=== PATIENT | male | born 1990 | race Two or more races ===

== ENCOUNTER 2024-04-14 19:21 | Emergency (ER) | payer BC, OTHER ==
[~2024-04-14] VITALS: Ht 162.6 cm; Wt 97.7 kg
[2024-04-14] MEDS ORDERED: PRED20TA2 PO (21:38)
[2024-04-14] MEDS ORDERED: ACET500T58 PO (21:38)
[2024-04-14] MEDS ORDERED: AMOX875T4 PO (21:38)
--- NOTE | 2024-04-14 21:38 | ED.PDOC ---
Eye-HPI HPI Comments 33-year-old male presents to ER with complaints of sore throat x2 days. Patient reports that he has been experiencing sore throat, painful swallowing and congestion x2 days with associated dry cough x1 day. He rates his current pain a 7/10 to throat. Denies use of medications for current symptoms. Patient presents to ER ambulatory on arrival, with steady gait, in no distress. Denies fever, body aches, chills, shortness of breath, chest pain, hemoptysis, nausea/vomiting or any further symptoms/complaints Chief Complaint: Sore Throat Time Seen by MD: 19:49 Primary Care Provider: UNKNOWN Reviewed Notes: Nurses Notes, Medications, Allergies Allergies: Coded Allergies: NO KNOWN ALLERGIES (Unverified , 04/14/24) Home Meds Active Scripts Prednisone (Prednisone) 20 Mg Tab, 20 MG PO BID for 5 Days, #10 TAB 0 Refills Prov:JODY MCKENZIE 04/14/24 Amoxicillin & Pot Clavulanate (Amoxicillin/Potassium Cla) 875 Mg Tab, 1 TAB PO BID for 7 Days, #14 TAB 0 Refills Prov:JODY MCKENZIE 04/14/24 Acetaminophen (Acetaminophen) 500 Mg Tab, 500 MG PO Q4HPRN, #30 TAB 0 Refills Prov:JODY MCKENZIE 04/14/24 Information Source: Patient Mode of Arrival: Ambulatory Past Medical History PAST MEDICAL HISTORY: Denies Surgical History: Denies all surgeries Family History Family History: Unknown Social History Smoker: Non-Smoker Alcohol: Denies ETOH Use Drugs: Denies Drug Use Lives In: Home Constitutional: denies: chills, diaphoresis, fatigue, fever, malaise, sweats, weakness, others EENTM: reports: others (As stated in HPI) Respiratory: reports: others (As stated in HPI) Cardiovascular: denies: chest pain, dizzy spells, diaphoresis, Dyspnea on exertion, edema, irregular heart beat, left arm pain, lightheadedness, palpitations, PND, syncope, others Gastrointestinal: denies: abdomen distended, abdominal pain, blood streaked bowels, constipated, diarrhea, dysphagia, difficulty swallowing, hematemesis, melena, nausea, poor appetite, poor fluid intake, rectal bleeding, rectal pain, vomiting, others Genitourinary: denies: burning, dysuria, flank pain, frequency, hematuria, incontinence, penile discharge, penile sore, pain, testicle pain, testicle swelling, urgency, others Neurological: denies: dizziness, fainting, headache, left sided numbness, left sided weakness, numbness, paresthesia, pre-existing deficit, right sided numbness, right sided weakness, seizure, speech problems, tingling, tremors, weakness, others Musculoskeletal: denies: back pain, gout, joint pain, joint swelling, muscle pain, muscle stiffness, neck pain, others Integumetry: denies: bruises, change in color, change in hair/nails, dryness, laceration, lesions, lumps, rash, wounds, others Allergic/Immunocompromised: denies: Difficulty Healing, Frequent Infections, Hives, Itching, others Hematologic/Lymphatic: denies: anemia, blood clots, easy bleeding, easy bruising, swollen glands, others Endocrine: denies: excessive hunger, excessive sweating, excessive thirst, excessive urination, flushing, intolerance to cold, intolerance to heat, unexplained weight gain, unexplained weight loss, others Psychiatric: denies: anxiety, bipolar disorder, depression, hopeless, panic disorder, schizophrenia, sleepless, suicidal, others Physical Exam General Appearance: No Apparent Distress, Obese HEENT: PERRL/EOMI, Pharyngeal Erythema (Mild tonsillar swelling/erythema noted bilaterally without exudates. Uvula-normal), TMs Normal Neck: Full Range of Motion, Non-Tender, Normal Respiratory: Chest Non-Tender, Lungs Clear, No Accessory Muscle Use, No Respiratory Distress, Normal Breath Sounds Cardiovascular: No Murmur, No Gallop, Tachycardia Breast Exam: Deferred Gastrointestinal: NOT DONE Genitalia: Deferred Pelvic: Deferred Rectal: Deferred Extremities: Normal capillary refill, Normal range of motion Neurologic: Alert, palm gatherer II-XII nml as Tested, No Motor Deficits, Normal Affect, Normal Mood, No Sensory Deficits Cerebellar Function: Normal Reflexes: Normal Skin: Dry, Normal Color, Warm Peripheral Pulses: 3+ Radial (R), 3+ Radial (L), 3+ Brachial (R), 3+ Brachial (L) Lymphatic: No Adenopathy Was a procedure done? Was a procedure done?: No Sedation Sedation?: No EENT DIFF Eye: N/A Sore Throat: Epiglottitis, Mononeucleosis, Peritonsillar Abscess X-Ray, Labs, Meds, VS Vital Signs Date Time Temp Pulse Resp B/P (MAP) Pulse Ox O2 Delivery O2 Flow Rate FiO2 04/14/24 22:25 102.4 04/14/24 22:21 102.4 117 18 142/86 (104) 98 102.4 04/14/24 19:47 97.7 130 18 151/96 (114) 97 Current Medications Medications (Trade) Dose Ordered Sig/Yasir Route Start Time Stop Time Status Last Admin Ceftriaxone Sodium (Rocephin) 1,000 mg ONCE ONCE IM 04/14/24 21:45 04/14/24 21:46 DC 04/14/24 22:03 Methylprednisolone Sodium Succinate (Solu Medrol) 125 mg ONCE ONCE IM 04/14/24 21:45 04/14/24 21:46 DC 04/14/24 22:03 Acetaminophen (Tylenol Tablet) 650 mg ONCE ONCE PO 04/14/24 22:30 04/14/24 22:31 04/14/24 22:25 Rocephin 1 g IM ordered Solu-Medrol 125 mg IM ordered Tylenol 650 mg P.O. ordered Patient tolerating p.o. intake well and in no distress prior to discharge Advised to drink plenty of fluids Advised to follow up with PCP in 1-2 days Patient verbalized understanding and agreeable with current plan of care Advised to return to ER immediately if symptoms worsen Time of 1ST Reevaluation: 21:14 Reevaluation 1ST: N/A Patient Education/Counseling: Diagnosis, Treatment, Prognosis, Need For Follow Up Family Education/Counseling: No Family Present Departure 1 Departure Time of Disposition: 21:30 Impression: Primary Impression: Upper respiratory infection Qualified Codes: J06.9 - Acute upper respiratory infection, unspecified Disposition: HOME / SELF CARE / HOMELESS Condition: Stable e-Prescriptions Prednisone (Prednisone) 20 Mg Tab 20 MG PO BID for 5 Days, #10 TAB 0 Refills Prov: JODY MCKENZIE 04/14/24 Amoxicillin & Pot Clavulanate (Amoxicillin/Potassium Cla) 875 Mg Tab 1 TAB PO BID for 7 Days, #14 TAB 0 Refills Prov: JODY MCKENZIE 04/14/24 Acetaminophen (Acetaminophen) 500 Mg Tab 500 MG PO Q4HPRN, #30 TAB 0 Refills Prov: JODY MCKENZIE 04/14/24 Discharged With: Self Critical Care Note Critical Care Time?: No Stability Stability form required: No Heart Score Heart Score: Heart Score Response (Comments) Value History N/A 0 EKG N/A 0 Age N/A 0 Risk Factors N/A 0 Troponin N/A 0 Total 0 JODY MCKENZIE Apr 14, 2024 21:38
[2024-04-14] MEDS: methylPREDNISolone SOD SUCC 125 MG/2 ML VL IM ONE (22:03)
[2024-04-14] MEDS: cefTRIAXone SOD 1,000 MG VL IM ONE (22:03)
[2024-04-14 22:21] VITALS: BP 142/86
[2024-04-14] MEDS: ACETAMINOPHEN 325 MG TAB PO ONE (22:25)
[2024-04-14 22:37] VITALS: TEMP 101.2
[2024-04-14 22:45] VITALS: PULSE 110; RESP 18; O2SAT 98
== END 2024-04-14 22:46 | disposition home or self-care (01) ==
LOC: ER 19:21
DX: J06.9 Acute upper respiratory infection, unspecified (principal); Z79.899 Other long term (current) drug therapy
CPT/HCPCS: 96372; 99284; J0696; J2919